=== PATIENT | female | born 1985 | race African-American/Black ===

== ENCOUNTER 2022-07-06 08:15 | Emergency (ER) | payer OTHER ==
[2022-07-06 08:24] VITALS: BP 127/86; PULSE 84; RESP 18; TEMP 98.5; BMI 20.7
[2022-07-06] MEDS ORDERED: IBUPROFEN 600 MG TABLET (FP) PO ONE (08:37)
[2022-07-06] MEDS ORDERED: IBUPROFEN 400 MG TABLET (FP) PO ONE (08:41)
== END 2022-07-06 10:01 | disposition home or self-care (01) ==
LOC: JER 08:15 → JERFT 08:15
DX: S60.122A Contusion of left index finger with damage to nail, initial encounter (principal); W23.0XXA Caught, crushed, jammed, or pinched between moving objects, initial encounter
CPT/HCPCS: 73130-TC-LT-FY; 99283-25

== ENCOUNTER 2023-10-14 17:47 | Emergency (ER) | payer OTHER ==
[2023-10-14 18:28] VITALS: BP 131/80; PULSE 78; RESP 18; TEMP 98.2; BMI 22.4
[2023-10-14 20:20] LABS: EPI CELLS 8 /uL (0-25.1); HYALINE CASTS 0 /uL (0-3.1); PH,URINE 5.5 (5.0-8.0); URINE APPEARANCE CLEAR; URINE BACTERIA 94 /uL (0-1359); URINE BILIRUBIN NEGATIVE (NEGATIVE); URINE COLOR YELLOW; URINE GLUCOSE (UA) NEGATIVE (NEGATIVE); URINE KETONE NEGATIVE (NEGATIVE); URINE LEUK ESTERASE TRACE (NEGATIVE); URINE NITRITE NEGATIVE (NEGATIVE); URINE PROTEIN NEGATIVE (NEGATIVE); URINE RBC 18 /uL (0-23.9); URINE UROBILINOGEN 0.2 mg/dL (0.2-1.0); URINE WBC 16 /uL (0-25.8)
[2023-10-14 20:42] LABS: BASO % 1.1 % (0-2.0); EOS % 0.8 % (0-4.5); HEMATOCRIT 38.8 % (32.4-45.2); HEMOGLOBIN 13.2 GM/dL (10.7-15.3); LYMPH % 37.7 % (8-40); MCH 30.8 pg (25.7-33.7); MEAN CELL VOLUME 90.6 fl (80-96); MEAN PLT VOLUME 9.4 fl (7.5-11.1); NEUT % 51.4 % (42.8-82.8); PLATELET COUNT 226 10^3/uL (134-434); RBC 4.28 M/mm3 (3.60-5.2); RDW 12.7 % (11.6-15.6); WHITE BLOOD COUNT 8.5 K/mm3 (4.0-10.0)
[2023-10-14 20:46] LABS: HCG,QUALITATIVE URINE Positive
[2023-10-14 20:57] LABS: POTASSIUM 4.4 mmol/L (3.5-5.1)
[2023-10-14 21:01] LABS: CALCIUM 8.8 mg/dL (8.5-10.1)
[2023-10-14 21:02] LABS: ALBUMIN 3.3 g/dl (3.4-5.0); BLOOD UREA NITROGEN 11.8 mg/dL (7-18)
[2023-10-14 21:05] LABS: CREATININE 0.9 mg/dL (0.55-1.3)
[2023-10-14 21:07] LABS: BILIRUBIN,TOTAL 0.3 mg/dL (0.2-1); TOT PROT 6.7 g/dl (6.4-8.2)
[2023-10-14 21:55] LABS: HIV INTERPRETATION NEGATIVE (NEGATIVE)
== END 2023-10-14 22:07 | disposition home or self-care (01) ==
LOC: JER 17:47
DX: O09.511 Supervision of elderly primigravida, first trimester (principal); O20.9 Hemorrhage in early pregnancy, unspecified; Z3A.01 Less than 8 weeks gestation of pregnancy
CPT/HCPCS: 36415; 76817-TC; 80053; 81003; 84702; 84703; 85025; 86803; 86850; 86900; 86901; 87086; 87389; 99284-25